=== PATIENT | female | born 1980 | race Caucasian/White ===

== ENCOUNTER 2019-05-21 10:43 | Emergency (ER) | payer MEDICAID, OTHER ==
[~2019-05-21] VITALS: Ht 162.6 cm; Wt 74.4 kg
[2019-05-21 10:46] VITALS: BP 143/76
--- NOTE | 2019-05-21 10:52 | NUR ---
PT AMB TO BED 9 WITH STEADY GAIT
--- NOTE | 2019-05-21 11:09 | NUR ---
38 Y/O PATIENT COMPLAINED OF ANXIETY. PATIENT IS A/O X4 AND STATES THE FRONT OF HER HEAD AND THE BACK OF MY HEAD FEEL NUMB . SHE ALSO STATES THAT HER CHEST FEELS "HEAVY". SKIN IS PINK/WARM/DRY; APATIENT STATES PAIN OF 5/10 AT THIS TIME; PATIENT POSITIONED FOR COMFORT; HOB ELEVATED; BEDRAILS UP X1; BED DOWN. ER MD MADE AWARE OF PT STATUS. PMH- ANXIETY
[2019-05-21] MEDS ORDERED: LORazepam 1 MG TAB PO ONE (11:20)
--- NOTE | 2019-05-21 11:59 | NUR ---
Patient appears to be resting in bed. Vital Signs within normal limits. Respirations even and unlabored.
[2019-05-21 13:20] VITALS: BP 111/75
--- NOTE | 2019-05-21 13:20 | NUR ---
Patient discharged with v/s stable. Written and verbal after care instructions given and explained. Patient verbalized understanding. Ambulatory with steady gait. All questions addressed prior to discharge. Advised to follow up with PMD.
== END 2019-05-21 13:20 | disposition home or self-care (01) ==
LOC: MED 10:43
DX: F41.9 Anxiety disorder, unspecified (principal); Z86.32 Personal history of gestational diabetes
CPT/HCPCS: 99282; 99284